=== PATIENT | female | born 1945 | race Caucasian/White ===

== ENCOUNTER 2016-08-09 09:34 | Day surgery (SDC) | payer MEDICARE, OTHER ==
[~2016-08-09] VITALS: Ht 160 cm; Wt 93.0 kg
[~2016-08-09 09:34] MED LIST: 0.9% Sodium Chloride 1,000 ML IV SCH; ASC500 PO; CHOL10008 PO; COU3 PO; GLUC-120 PO; LECI400C PO; LUTE10TA PO; METF500T4 PO; METO25T PO; MULT-946 PO; OMEP20CA11 PO; PIRO10CA PO; SYN75 PO; Sodium Chloride LOK Flush 10 mL Syringe IV PRN; [UNRECOGNIZED DRUG - CODE] PO; fentaNYL-PF 50 mCg/mL 2 mL Inj IVPUSH PRN
[2016-08-09] MEDS ORDERED: METO100T3 PO (10:45)
[2016-08-09] MEDS ORDERED: LEVO75TA4 PO (10:45)
[2016-08-09] MEDS ORDERED: WARF4TAB6 PO (10:45)
[2016-08-09 10:50] VITALS: BP 137/70; PULSE 71; RESP 16; O2SAT 95
[2016-08-09 11:52] VITALS: BP 144/67; PULSE 77; RESP 16; O2SAT 93
[2016-08-09 12:03] VITALS: BP 147/70; PULSE 67; RESP 16; O2SAT 97
[2016-08-09 12:10] VITALS: BP 135/59; PULSE 67; RESP 16; O2SAT 97
--- NOTE | 2016-08-09 13:52 | ENDO ---
[address] [address] ENDOSCOPY PROCEDURE PATIENT: NOELLE MUSA : 1945 MR#: [id number] ADMIT: 08/09/2016 JOB ID: [id number] DATE: 08/09/2016 PROCEDURE: Colonoscopy. INDICATIONS: Screening. The patient's ASA classification is 2. Mallampati score is 2. MEDICATIONS: 1. Versed 4 mg. 2. Fentanyl 100 mcg. INSTRUMENT USED: PCF H 190 AL. PREPARATION QUALITY: Was good. PROCEDURE DETAILS: After informed consent was obtained, the patient was brought into the GI suite, where she was placed on oxygen via nasal cannula and monitored with continuous pulse oximeter, telemetry and blood pressure monitoring. A time-out was performed. Then, she was placed in the left lateral decubitus position and medications were administered for sedation. Digital rectal examination was performed and was unremarkable. The colonoscope was then inserted into the rectum and advanced under direct visualization to the cecum, which was identified by the presence of the ileocecal valve and appendiceal orifice. Once the cecum was reached, the colonoscope was withdrawn back to the rectum as the mucosa and lumen were examined. In the rectum, retroflexion was performed. Following retroflexion, remaining air in the rectum was suctioned, and the procedure was completed. FINDINGS: 1. In the cecum there was a flat polyp that measured approximately 1 cm and was circumferential. Polyp was lifted using normal saline and then removed in a single piece with a hot snare. Following polypectomy, the mucosal defect was approximated with the placement of six hemoclips. The polyp was retrieved out of the colon using a Michaels net. 2. From 50 to 40 cm, the mucosa appeared edematous with submucosal hemorrhage and loss of normal vascular pattern suggestive of colitis. This extended to about 40 cm, and then from 40 to 35 cm the mucosa appeared normal. From 35 cm to 30 cm again, the mucosa had the same appearance with loss of vascularity, submucosal hemorrhage and edema suggestive of colitis. Multiple random biopsies were obtained of these areas. 3. Retroflexed views in the rectum revealed [id number] sized internal hemorrhoids. IMPRESSION: 1. Large cecal polyp. 2. Colitis from 50 to 40 cm and then again from 35 to 30 cm. 3. Scattered diverticula were seen throughout the left side of the colon. 4. Large-sized internal hemorrhoids. RECOMMENDATIONS: 1. Okay to restart warfarin tomorrow. 2. Fiber rich diet. 3. Followup in GI clinic in 2-4 weeks. COMPLICATIONS: None. ESTIMATED BLOOD LOSS: 0.
--- NOTE | 2016-08-20 14:52 | PATH ---
SURGICAL PATHOLOGY Attending Physician:Jonathan Whaley CASE STATUS: Signed Out * Amended * PATIENT NAME: NOELLE MUSA PID: [id number] : 1945 DATE COLLECTED:08/09/2016 20:14 SPECIMEN: 1: Colon, Biopsy 2: Colon, Biopsy CLINICAL HISTORY: POLYP 1). CECAL POLYP 2). DESCENDING COLON BIOPSY FINAL DIAGNOSIS: 1. Cecum, Polyp, Procedure Not Specified: Sessile serrated adenoma. 2. Descending Colon, Biopsy: Active colitis. Please see comment. Negative for dysplasia. ICD10 K63.5 This case was reviewed and interpreted by Dr. Candida Hurt. The final diagnosis is unchanged. This amendment is issued in order for the report to cross the interface and be available in the hospital electronic medical record. NOTE: 2) Sections demonstrate superficial portions of colorectal mucosa with an increase in lymphocytes and plasma cells within the lamina propria and areas of active inflammation rare crypt abscess. Lymphoid aggregates are scattered throughout the tissue fragments. Mild distortion of crypt architecture and vague, possible granulomas are present. There is no evidence of dysplasia or neoplasia. The differential diagnosis includes an acute self-limited bacterial colitis, NSAID use, and idiopathic inflammatory bowel disease, in the appropriate clinical context. GROSS DESCRIPTION: The specimen is received in two formalin filled containers labeled with the patient's name. 1). The specimen a sublabeled "cecal polyp" and consists of a 1.5 x 1.4 x 0.7 CM portion of tissue. The specimen is sectioned into 4 pieces and entirely submitted in cassette 1A. 2). The specimen is sublabeled "descending colon" and consists of multiple portions of tissue which aggregate to 0.4 x 0.4 x 0.3 CM. The specimen is entirely submitted in cassette 2A. 08/09/2016 [facility] ICD-9 CODES: CPT CODES: 1: 79317 2: 76171 AMENDMENT(S): Amended: 08/20/2016 by Sun Joe Reason:Miscellaneous The final diagnosis is unchanged. This amendment is issued in order for the report to cross the interface and be available in the hospital electronic medical record. Previous Signout Date: 08/13/2016 Electronically Signed Out Lin Short MD [facility] [address], [place] [address] Technical component performed at [facility], [address], [place], [address]
== END 2016-08-09 23:59 | disposition home or self-care (01) ==
LOC: END 09:34
PROVIDERS: ATTEND Internal Medicine Gastroenterology
DX: D12.0 Benign neoplasm of cecum (principal); K52.9 Noninfective gastroenteritis and colitis, unspecified; K57.30 Diverticulosis of large intestine without perforation or abscess without bleeding; K64.8 Other hemorrhoids; I48.91 Unspecified atrial fibrillation; Z79.01 Long term (current) use of anticoagulants; E11.9 Type 2 diabetes mellitus without complications; Z79.84 Long term (current) use of oral hypoglycemic drugs
CPT/HCPCS: 45380; 45381; 45385; 88305; 99153; G0500; J7030